=== PATIENT | male | born 1935 | race Hispanic/Latino ===

== ENCOUNTER 2016-08-09 08:37 | Emergency (ER) | payer MEDICARE ==
--- NOTE | 2016-08-09 09:28 | Emergency Department Report ---
Chief Complaint: Abdominal Pain Stated Complaint: BLOOD IN URINE Time Seen by Provider: 08/09/16 09:15 - HPI History of Present Illness: 80-year-old male with a history of resistant UTI and bilateral nephrostomy tubes presents today with a blood in the right collection bag since this morning. Patient states he recently had a nephrostomy on July 19. Denies fever, chills, nausea, vomiting, abdominal pain. - ROS Review of Systems: Per HPI - Exam Vital Signs: Vital Signs 08/09/16 08:50 Temperature 97.6 F Pulse Rate 80 Respiratory 19 Rate Blood Pressure 128/81 O2 Sat by Pulse 99 Oximetry Physical Exam: General: 80-year-old male in no acute distress. CV: Regular rate and rhythm. No murmurs rubs or gallops. Lungs: Clear to auscultation bilaterally. MSE screening note: Focused history and physical exam performed. Due to findings the following was ordered: ED Disposition for MSE Condition: Stable
[2016-08-09 09:41] LABS: Basophils % (Auto) 0.8 % (0.0-1.8); Eosinophils % (Auto) 3.3 % (0.0-4.3); Hematocrit 35.9 % (35.5-45.6); Hemoglobin 11.9 gm/dl (11.8-15.2); Mean Corpuscular HGB Conc 33 % (32-34); Mean Corpuscular Hemoglobin 29 pg (28-32); Mean Corpuscular Volume 87 fl (84-94); Platelet Count 239 K/mm3 (140-440); Red Blood Count 4.15 M/mm3 (3.65-5.03); Red Cell Distribution Width 13.9 % (13.2-15.2); White Blood Count 8.3 K/mm3 (4.5-11.0)
[2016-08-09 09:58] LABS: BUN/Creatinine Ratio 12.1; Calcium 8.6 mg/dL (8.4-10.2); Chloride 103.1 mmol/L (98-107); Potassium 4.3 mmol/L (3.6-5.0)
[2016-08-09 10:11] LABS: Bacteria,Urine 3+ /HPF (Negative); Bilirubin,Urine NEG (Negative); Blood,Urine LG (Negative); Ketones,Urine TR mg/dL (Negative); Leukocyte Esterase,Urine LG (Negative); Nitrite,Urine NEG (Negative); Urobilinogen,Urine < 2.0 mg/dL (<2.0)
[2016-08-09 10:12] LABS: RBC,Urine > 182.0 /HPF (0.0-6.0); WBC,Urine > 182.0 /HPF (0.0-6.0)
--- NOTE | 2016-08-09 20:47 | Emergency Department Report ---
[id number] 4d BLOOD IN URINE Time Seen by Provider: 08/09/16 09:39 Source: patient, RN notes reviewed Mode of arrival: Ambulatory Limitations: No Limitations, Physical Limitation - History of Present Illness Initial comments: This is an 80-year-old male, previously unknown to me. His primary neurologist is Dr. Downs, with [facility]. Phone number: [phone] Patient had bilateral nephrostomy tubes placed at [facility] on 2015. He cannot recall the reason why the tubes were placed. At some point in time during his course in the ER today, he did make a mention of persistent urinary tract infection, but cannot further expand on this. Patient reports completing a course of Levaquin and ciprofloxacin in the past month. Patient presents with resolved hematuria from a right-sided nephrostomy tube. He also complains of intermittent hematuria when he urinates. There were no issues with a left nephrostomy tube. He complains of chronic back pain at the insertion site. There is no redness, pus or streaking. There is no testicular pain. There is no abdominal pain. There is no nausea, vomiting or diarrhea. He has not followed up with his urologist since the insertion. His back pain is intermittent, it worsens when he lays on his back, and with twisting and laying on the nephrostomy tube. -: Gradual, week(s) Location: back Severity scale (0 -10): 8 Quality: aching Consistency: intermittent Improves with: rest Worsens with: movement Associated Symptoms: denies: confusion, chest pain, cough, diaphoresis, fever/ chills, headaches, loss of appetite, malaise, nausea/vomiting, rash, seizure, shortness of breath, syncope, weakness - Related Data Home Medications Medication Instructions Recorded Confirmed Last Taken No Known Home Medications [No 08/09/16 08/09/16 Unknown Reported Home Medications] Allergies Allergy/AdvReac Type Severity Reaction Status Date / Time No Known Allergies Allergy Unverified 08/09/16 09:13 ED Review of Systems ROS: Stated complaint: BLOOD IN URINE Other details as noted in HPI Constitutional: denies: fever Eyes: denies: vision change ENT: denies: epistaxis Respiratory: denies: cough Cardiovascular: denies: chest pain Gastrointestinal: denies: nausea Genitourinary: as per HPI, hematuria. denies: testicular pain Musculoskeletal: back pain Skin: denies: rash Neurological: denies: weakness Psychiatric: as per HPI ED Past Medical Hx - Past Medical History Hx Hypertension: Yes Hx Renal Disease: Yes ("KIDNEYS PLUGGED UP") Hx of Cancer: Yes (PROSTATE) - Surgical History Additional Surgical History: BILATERAL NEPHROSTOMY TUBES. "GREEN LIGHT LASER SURGERY WITH STENT PLACEMENT LEFT KIDNEY" - Social History Smoking Status: Never Smoker Substance Use Type: Prescribed - Medications Home Medications: Home Medications Medication Instructions Recorded Confirmed Last Taken Type No Known Home Medications [No 08/09/16 08/09/16 Unknown History Reported Home Medications] ED Physical Exam - General Limitations: No Limitations General appearance: alert, in no apparent distress - Head Head exam: Present: atraumatic, normocephalic - Eye Eye exam: Present: normal appearance. Absent: nystagmus - ENT ENT exam: Present: normal exam, normal orophraynx, mucous membranes moist - Neck Neck exam: Present: normal inspection, full ROM. Absent: tenderness, meningismus - Respiratory Respiratory exam: Present: normal lung sounds bilaterally. Absent: respiratory distress, wheezes, rales, rhonchi, stridor, chest wall tenderness - Cardiovascular Cardiovascular Exam: Present: regular rate, normal rhythm, normal heart sounds. Absent: bradycardia, tachycardia, irregular rhythm, systolic murmur, diastolic murmur, rubs, gallop - GI/Abdominal GI/Abdominal exam: Present: soft, normal bowel sounds, hernia (as a reducible umbilical hernia). Absent: distended, tenderness, guarding, rebound, rigid - Rectal Rectal exam: Present: deferred - exam: Absent: testicular tenderness External exam: Present: normal external exam - Extremities Exam Extremities exam: Present: normal inspection, full ROM, normal capillary refill. Absent: tenderness, pedal edema, joint swelling, calf tenderness - Back Exam Back exam: Present: normal inspection, full ROM, other (bilateral nephrostomy tubes are noted. There is no redness, pus, streaking or cellulitis around the insertion site. Both tubes are draining clear yellow urine). Absent: tenderness, CVA tenderness (R), CVA tenderness (L), muscle spasm, paraspinal tenderness, vertebral tenderness - Neurological Exam Neurological exam: Present: alert, other (Extraocular movements intact. Tongue midline. No facial droop. Facial sensation intact to light touch in the V1, V2 , V3 distribution bilaterally. 5 and 5 strength in 4 extremities.. Sensation is intact to light touch in 4 extremities.). Absent: motor sensory deficit - Psychiatric Psychiatric exam: Present: normal affect, normal mood - Skin Skin exam: Present: warm, dry, intact, normal color. Absent: rash ED Course Vital Signs 08/09/16 08/09/16 08/09/16 08:50 09:14 18:18 Temperature 97.6 F Pulse Rate 80 8 L Respiratory 19 20 20 Rate Blood Pressure 128/81 Blood Pressure 126/78 [Right] O2 Sat by Pulse 99 98 Oximetry 08/09/16 08/09/16 18:45 21:25 Temperature Pulse Rate 89 82 Respiratory 20 18 Rate Blood Pressure Blood Pressure 120/76 124/76 [Right] O2 Sat by Pulse 98 98 Oximetry - Reevaluation(s) Reevaluation #1: 08/09/16 21:07 Differential diagnosis: Urinary tract infection, pyelonephritis, nephrostomy tube malfunction, postprocedural hematuria,, general nephrostomy tube evaluation Assessment and plan: 80-year-old male with weeks of symptoms. He is afebrile with reassuring vital signs. There is no CVA tenderness he is afebrile without leukocytosis, and is not nauseous or vomiting. Clinically do not suspect pyelonephritis at this time. Both of his nephrostomy tubes are draining clear yellow urine, and they do not appear to be obstructed. His symptoms have been going on for weeks. Mild renal insufficiency is appreciated, no prior for comparison. I have discussed the case with the urologist on-call for his primary urologist, Dr. Young. 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 Cultures will be sent from bilateral nephrostomy tubes. The patient is instructed to follow-up with his outpatient urologist later on this week. He will be discharged. Return precautions are extensively reviewed. Given his chronicity of symptoms, benign appearance, I don't believe he requires antibiotic therapy at this time. His urologist agrees. ED Medical Decision Making - Lab Data Result diagrams: 08/09/16 09:29 08/09/16 09:29 Vital Signs 08/09/16 08/09/16 08/09/16 08:50 18:18 18:45 Temperature 97.6 F Pulse Rate 80 89 Respiratory 19 20 20 Rate Blood Pressure 128/81 Blood Pressure 120/76 [Right] O2 Sat by Pulse 99 98 Oximetry Lab Results 08/09/16 08/09/16 08/09/16 Range/Units 09:29 09:29 09:29 WBC 8.3 (4.5-11.0) K/mm3 RBC 4.15 (3.65-5.03) M/mm3 Hgb 11.9 (11.8-15.2) gm/dl Hct 35.9 (35.5-45.6) % MCV 87 (84-94) fl MCH 29 (28-32) pg MCHC 33 (32-34) % RDW 13.9 (13.2-15.2) % Plt Count 239 (140-440) K/mm3 Lymph % (Auto) 14.8 (13.4-35.0) % [place] % (Auto) 6.2 (0.0-7.3) % Eos % (Auto) 3.3 (0.0-4.3) % Baso % (Auto) 0.8 (0.0-1.8) % Lymph # 1.2 (1.2-5.4) K/mm3 [place] # 0.5 (0.0-0.8) K/mm3 Eos # 0.3 (0.0-0.4) K/mm3 Baso # 0.1 (0.0-0.1) K/mm3 Seg Neutrophils % 74.9 H (40.0-70.0) % Seg Neutrophils # 6.3 (1.8-7.7) K/mm3 Sodium 140 (137-145) mmol/L Potassium 4.3 (3.6-5.0) mmol/L Chloride 103.1 (98-107) mmol/L Carbon Dioxide 21 L (22-30) mmol/L Anion Gap 20 mmol/L BUN 23 H (9-20) mg/dL Creatinine 1.9 H (0.8-1.5) mg/dL Estimated GFR 34 ml/min BUN/Creatinine Ratio 12.10 % Glucose 95 (75-100) mg/dL Calcium 8.6 (8.4-10.2) mg/dL Amylase 58 (27-131) units/L Lipase 29 (13-60) units/L Urine Color (Yellow) Urine Turbidity (Clear) Urine pH (5.0-7.0) Ur Specific [place] (1.003-1.030) Urine Protein (Negative) mg/dL Urine Glucose (UA) (Negative) mg/dL Urine Ketones (Negative) mg/dL Urine Blood (Negative) Urine Nitrite (Negative) Urine Bilirubin (Negative) Urine Urobilinogen (<2.0) mg/dL Ur Leukocyte Esterase (Negative) Urine WBC (Auto) (0.0-6.0) /HPF Urine RBC (Auto) (0.0-6.0) /HPF Urine Bacteria (Auto) (Negative) /HPF Urine WBC Clumps /HPF 08/09/16 Range/Units Unknown WBC (4.5-11.0) K/mm3 RBC (3.65-5.03) M/mm3 Hgb (11.8-15.2) gm/dl Hct (35.5-45.6) % MCV (84-94) fl MCH (28-32) pg MCHC (32-34) % RDW (13.2-15.2) % Plt Count (140-440) K/mm3 Lymph % (Auto) (13.4-35.0) % [place] % (Auto) (0.0-7.3) % Eos % (Auto) (0.0-4.3) % Baso % (Auto) (0.0-1.8) % Lymph # (1.2-5.4) K/mm3 [place] # (0.0-0.8) K/mm3 Eos # (0.0-0.4) K/mm3 Baso # (0.0-0.1) K/mm3 Seg Neutrophils % (40.0-70.0) % Seg Neutrophils # (1.8-7.7) K/mm3 Sodium (137-145) mmol/L Potassium (3.6-5.0) mmol/L Chloride (98-107) mmol/L Carbon Dioxide (22-30) mmol/L Anion Gap mmol/L BUN (9-20) mg/dL Creatinine (0.8-1.5) mg/dL Estimated GFR ml/min BUN/Creatinine Ratio % Glucose (75-100) mg/dL Calcium (8.4-10.2) mg/dL Amylase (27-131) units/L Lipase (13-60) units/L Urine Color Yellow (Yellow) Urine Turbidity Turbid (Clear) Urine pH 6.0 (5.0-7.0) Ur Specific [place] 1.011 (1.003-1.030) Urine Protein 100 mg/dl (Negative) mg/dL Urine Glucose (UA) Neg (Negative) mg/dL Urine Ketones Tr (Negative) mg/dL Urine Blood Lg (Negative) Urine Nitrite Neg (Negative) Urine Bilirubin Neg (Negative) Urine Urobilinogen < 2.0 (<2.0) mg/dL Ur Leukocyte Esterase Lg (Negative) Urine WBC (Auto) > 182.0 H (0.0-6.0) /HPF Urine RBC (Auto) > 182.0 (0.0-6.0) /HPF Urine Bacteria (Auto) 3+ (Negative) /HPF Urine WBC Clumps 3+ /HPF Critical care attestation.: If time is entered above; I have spent that time in minutes in the direct care of this critically ill patient, excluding procedure time. ED Disposition Clinical Impression: Renal insufficiency Disposition: DISCHARGED TO HOME OR SELFCARE Is pt being admited?: No Does the pt Need Aspirin: No Condition: Stable Instructions: Chronic Kidney Disease (ED) Additional Instructions: Continue current outpatient medications. Follow-up with your primary urologist within the next week. Contact your urologist and his office at the following phone number: [phone]. Alternatively, you may follow-up with Dr. Boss, who is a local urologist. Cultures were sent today, results will be available the next 3-5 days. Please have a primary care doctor contact the medical records department to obtain culture results. In addition, laboratory studies demonstrated renal insufficiency. This should be followed up by either her primary care doctor, formal wear rental clerk (Dr. Rowan), oriented urologist. Return to the ER right away with new pain, worsening pain, migration of pain, fevers or chills, nausea or vomiting, inability to tolerate liquid feeds. Referrals: PRIMARY CARE, [Primary Care Provider] - 3-5 Days VENITA BOSS MD [Staff Physician] - 3-5 Days JU ROWAN MD [Staff Physician] - 3-5 Days KVNG THOMAS MD [Staff Physician] - 3-5 Days
[2016-08-09 21:26] VITALS: BP 124/76
== END 2016-08-09 21:25 | disposition home or self-care (01) ==
LOC: ED 08:37
DX: N28.9 Disorder of kidney and ureter, unspecified (principal); I10 Essential (primary) hypertension; Z85.46 Personal history of malignant neoplasm of prostate
CPT/HCPCS: 36415; 80048; 81001; 82150; 83690; 85025; 87086; 99283

== ENCOUNTER 2017-03-22 08:59 | Outpatient (CLI) | payer MEDICARE ==
--- NOTE | 2017-03-22 14:30 | Fluoroscopy Report ---
RETROGRADE URETHROGRAM History: Prostate cancer Findings: Sterile technique was utilized. 38 fluoroscopic images were obtained during retrograde administration of contrast agent in the urethra. The anterior urethra is normal. There is no evidence for stricture or filling defect. No diverticula. The prosthetic urethra could not be opacified. Impression: Normal anterior urethra.
--- NOTE | 2017-03-22 14:32 | Fluoroscopy Report ---
FLUOROSCOPY NEPHROSTOGRAM EXISTING RIGHT History: Prostate cancer. Findings: 7 fluoroscopic images were obtained during injection of water-soluble contrast into the right nephrostomy tube. The right nephrostomy tube appears in good position. Only the right renal pelvis and proximal right ureter could be opacified. The mid and distal right ureter are not clearly demonstrated on this exam. There appears to be a significant obstruction on the right side. Impression: The right nephrostomy tube is in adequate position.
--- NOTE | 2017-03-22 14:33 | Fluoroscopy Report ---
FLUOROSCOPY NEPHROSTOGRAM EXISTING LEFT History: Prostate cancer. Findings: 13 fluoroscopic images were obtained during injection of contrast agent into the left nephrostomy tube. The nephrostomy tube is in good position terminating in the left renal pelvis. There is a high-grade stricture in the distal left ureter approximately 5 cm from the left UVJ. Impression: Distal left ureteral stricture. The left nephrostomy tube is in good position.
== END 2017-03-22 09:00 | disposition home or self-care (01) ==
LOC: FLUORO 08:59
PROVIDERS: ATTEND Urology
DX: C61 Malignant neoplasm of prostate (principal); N13.1 Hydronephrosis with ureteral stricture, not elsewhere classified; I10 Essential (primary) hypertension
CPT/HCPCS: 50431; 51610; 74450; Q9967